=== PATIENT | female | born 1985 | race Caucasian/White ===

== ENCOUNTER → 2017-04-11 | Outpatient (CLI) | payer OTHER ==
[~2017-04-11] MED LIST: FLUO20CA19 PO; HYDR-3240 PO; PRED20TA PO
[2017-04-11 12:11] LABS: HEMATOCRIT 39.9 % (34.6-47.8); HEMOGLOBIN 13.1 g/dL (11.7-16.4); WHITE BLOOD COUNT 5.5 x10^3/uL (3.4-10)
[2017-04-11 12:26] LABS: BLOOD UREA NITROGEN 15 mg/dL (7-18)
[2017-04-11 12:30] LABS: ASPARTATE AMINO TRANSFERASE 14 U/L (15-37)
== END | disposition home or self-care (01) ==
LOC: LAB 11:56
PROVIDERS: ATTEND Specialist
DX: M35.9 Systemic involvement of connective tissue, unspecified (principal); R76.0 Raised antibody titer
CPT/HCPCS: 36415; 80053; 82570; 84156; 85025

== ENCOUNTER 2017-05-15 11:13 | Emergency (ER) | payer OTHER ==
[~2017-05-15] VITALS: Ht 157.5 cm; Wt 77.3 kg
[2017-05-15] MEDS ORDERED: CYCL1DRO OP (11:46)
[2017-05-15] MEDS ORDERED: AMLO5TAB2 PO (11:46)
[2017-05-15] MEDS ORDERED: HYDR200T PO (11:46)
[2017-05-15] MEDS ORDERED: GABA300C PO (11:46)
[2017-05-15 12:59] VITALS: BP 114/77
[2017-05-15 12:59] LABS: PATH.CAST-FLAG NOT PRESENT; SPERM-FLAG NOT PRESENT; SRC-FLAG NOT PRESENT; XTAL-FLAG NOT PRESENT; YLC-FLAG NOT PRESENT
[2017-05-15 13:04] LABS: HEMOGLOBIN 12.1 g/dL (11.7-16.4); WHITE BLOOD COUNT 5.6 x10^3/uL (3.4-10)
[2017-05-15 13:15] LABS: ASPARTATE AMINO TRANSFERASE 16 U/L (15-37); BLOOD UREA NITROGEN 10 mg/dL (7-18)
== END 2017-05-15 15:55 | disposition home or self-care (01) ==
LOC: ED 14:47
DX: N39.0 Urinary tract infection, site not specified (principal); R42 Dizziness and giddiness; M32.9 Systemic lupus erythematosus, unspecified
CPT/HCPCS: 36415; 70450; 70551; 80053; 81001; 84703; 85025; 85610; 85730; 87086; 93005; 99285

== ENCOUNTER 2017-05-18 13:32 | Emergency (ER) | payer OTHER ==
[~2017-05-18] VITALS: Ht 157.5 cm; Wt 76.8 kg
[~2017-05-18 13:32] MED LIST changes: +AMLO5TAB2 PO; +CYCL1DRO OP; +GABA300C PO; +HYDR200T PO
[2017-05-18] MEDS ORDERED: MORPHINE SULFATE 4 MG/ML, 1ML ONE (14:22)
[2017-05-18] MEDS ORDERED: SODIUM CHLORIDE 0.9% 1,000ML IVBOLUS ONE (14:30)
[2017-05-18] MEDS ORDERED: SODIUM CHLORIDE FLUSH 10ML SYR IVF ONE (14:30)
[2017-05-18] MEDS ORDERED: MORPHINE SULFATE 4 MG/ML, 1ML IVPush PRN (14:30)
[2017-05-18] MEDS ORDERED: ONDANSETRON 2MG/ML, 2ML ONE (14:48)
[2017-05-18 14:53] LABS: HEMATOCRIT 35.9 % (34.6-47.8); HEMOGLOBIN 11.9 g/dL (11.7-16.4); WHITE BLOOD COUNT 6.2 x10^3/uL (3.4-10)
[2017-05-18] MEDS ORDERED: ONDANSETRON 2MG/ML, 2ML IVPush ONE (15:00)
[2017-05-18 15:04] LABS: ASPARTATE AMINO TRANSFERASE 13 U/L (15-37); BLOOD UREA NITROGEN 18 mg/dL (7-18)
[2017-05-18 15:15] LABS: IS PT STATUS REG ER OR PRE ER? YES
[2017-05-18 16:18] VITALS: BP 115/80
== END 2017-05-18 16:20 | disposition home or self-care (01) ==
LOC: ED 16:10
DX: R07.89 Other chest pain (principal); G43.909 Migraine, unspecified, not intractable, without status migrainosus
CPT/HCPCS: 36415; 71010; 80053; 83880; 84484; 85025; 85379; 85610; 85730; 93005; 96361; 96374; 96375; 99285; J2405; J7030

== ENCOUNTER 2017-05-29 15:23 | Emergency (ER) | payer OTHER ==
[~2017-05-29] VITALS: Ht 157.5 cm; Wt 78.1 kg
[2017-05-29] MEDS ORDERED: ONDANSETRON 2MG/ML, 2ML ONE (16:49)
[2017-05-29 16:59] VITALS: BP 130/86
[2017-05-29] MEDS ORDERED: SODIUM CHLORIDE FLUSH 10ML SYR IVF ONE (17:00)
[2017-05-29] MEDS ORDERED: ONDANSETRON 2MG/ML, 2ML IVPush ONE (17:00)
[2017-05-29] MEDS ORDERED: SODIUM CHLORIDE 0.9% 1,000ML IVBOLUS ONE (17:00)
[2017-05-29] MEDS ORDERED: GABA300C10 PO (17:07)
[2017-05-29] MEDS ORDERED: METH500T7 PO (17:07)
[2017-05-29] MEDS ORDERED: MELO7.5T31 PO (17:07)
[2017-05-29 17:08] LABS: HEMATOCRIT 36.7 % (34.6-47.8); HEMOGLOBIN 12.1 g/dL (11.7-16.4); WHITE BLOOD COUNT 5.9 x10^3/uL (3.4-10)
[2017-05-29 17:16] LABS: PATH.CAST-FLAG NOT PRESENT; SPERM-FLAG NOT PRESENT; SRC-FLAG NOT PRESENT; XTAL-FLAG NOT PRESENT; YLC-FLAG NOT PRESENT
[2017-05-29 17:19] LABS: ASPARTATE AMINO TRANSFERASE 13 U/L (15-37); BLOOD UREA NITROGEN 14 mg/dL (7-18)
[2017-05-29] MEDS ORDERED: HYDROcodone/APAP 5/325 TABLET ONE (17:44)
[2017-05-29] MEDS ORDERED: HYDROcodone/APAP 5/325 TABLET PO ONE (18:00)
[2017-05-29] MEDS ORDERED: OMNIPAQUE 350 MG/ML, 100ML BOTTLE ONE (18:08)
== END 2017-05-29 19:09 | disposition home or self-care (01) ==
LOC: ED 16:26
DX: K85.90 Acute pancreatitis without necrosis or infection, unspecified (principal); G43.909 Migraine, unspecified, not intractable, without status migrainosus
CPT/HCPCS: 36415; 74177; 80053; 81001; 83690; 85025; 96361; 96374; 99285; J2405; J7030; Q9967

== ENCOUNTER → 2017-08-02 | Outpatient (CLI) | payer OTHER ==
[~2017-08-02] MED LIST changes: +GABA300C10 PO; +MELO7.5T31 PO; +METH500T7 PO
== END | disposition home or self-care (01) ==
LOC: LAB 10:19
PROVIDERS: ATTEND Internal Medicine Cardiovascular Disease
DX: R00.0 Tachycardia, unspecified (principal)
CPT/HCPCS: 36415; 84436; 84443; 84481

== ENCOUNTER → 2017-08-02 | Outpatient (CLI) | payer OTHER | END | disposition home or self-care (01) | LOC: CFH 08:39 | PROVIDERS: ATTEND Internal Medicine Cardiovascular Disease | DX: I07.1 Rheumatic tricuspid insufficiency (principal) | CPT/HCPCS: 93306 ==

== ENCOUNTER → 2018-02-05 | Outpatient (CLI) | payer OTHER ==
[~2018-02-05] MED LIST changes: -HYDR200T PO; +HYDR200T72 PO
== END | disposition home or self-care (01) ==
LOC: CFH 15:01
PROVIDERS: ATTEND Nurse Practitioner Family
DX: N13.30 Unspecified hydronephrosis (principal)
CPT/HCPCS: 76770

== ENCOUNTER 2018-02-06 18:15 | Emergency (ER) | payer OTHER ==
[~2018-02-06] VITALS: Ht 160 cm; Wt 70.8 kg
[2018-02-06 18:44] LABS: BASOPHILS # (AUTO) 0.03 x10^3/uL (0-0.1); BASOPHILS % (AUTO) 1 % (0-1); EOSINOPHILS # (AUTO) 0.11 x10^3/uL (0-0.4); EOSINOPHILS % (AUTO) 2 % (1-7); LYMPHOCYTES # (AUTO) 1.87 x10^3/uL (1-3.4); LYMPHOCYTES % (AUTO) 37 % (22-44); MD NO; MEAN CORPUSCULAR HEMOGLOBIN 25.8 pg (27.0-34.8); MEAN CORPUSCULAR HGB CONC 32.7 g/dL (32.4-35.8); MEAN CORPUSCULAR VOLUME 78.7 fL (80-100); MEAN PLATELET VOLUME 9.3 fL (7.4-10.4); MONOCYTES # (AUTO) 0.51 x10^3/uL (0.2-0.8); MONOCYTES % (AUTO) 10 % (2-9); NEUTROPHILS # (AUTO) 2.59 x10^3/uL (1.8-6.8); NEUTROPHILS % (AUTO) 51 % (42-75); PLATELET COUNT 221 x10^3/uL (130-400); RED BLOOD COUNT 4.64 x10^6/uL (3.82-5.3)
[2018-02-06 18:52] LABS: ALANINE AMINOTRANSFERASE 18 U/L (12-78); ALBUMIN 3.8 g/dL (3.4-5.0); ANION GAP 7 mmol/L (5-15); CALCIUM 9.4 mg/dL (8.5-10.1); CHLORIDE 111 mmol/L (98-107); CREATININE 0.83 mg/dL (0.55-1.02)
[2018-02-06 18:54] LABS: ALKALINE PHOSPHATASE 72 U/L (45-117); BILIRUBIN,TOTAL 0.4 mg/dL (0.2-1.0); TOTAL PROTEIN 7.1 g/dL (6.4-8.2)
[2018-02-06 19:27] LABS: CULTURE INDICATED? YES; MICROSCOPIC INDICATED
[2018-02-06 19:36] VITALS: BP 123/84
[2018-02-06 19:48] LABS: HCT (SEDRATE) 36.6 % (34.6-47.8)
== END 2018-02-06 20:27 | disposition home or self-care (01) ==
LOC: ED 19:34
DX: N30.90 Cystitis, unspecified without hematuria (principal); N13.30 Unspecified hydronephrosis; G43.909 Migraine, unspecified, not intractable, without status migrainosus; M32.9 Systemic lupus erythematosus, unspecified
CPT/HCPCS: 36415; 74176; 80053; 81001; 85025; 85651; 87086; 99285

== ENCOUNTER → 2019-09-02 | Outpatient (CLI) | payer OTHER ==
[~2019-09-02] MED LIST changes: +AMLO-150 PO; -AMLO5TAB2 PO
[2019-09-02 13:53] LABS: BASOPHILS # (AUTO) 0.02 x10^3/uL (0-0.1); BASOPHILS % (AUTO) 0 % (0-1); EOSINOPHILS # (AUTO) 0.11 x10^3/uL (0-0.4); EOSINOPHILS % (AUTO) 2 % (1-7); LYMPHOCYTES # (AUTO) 2.26 x10^3/uL (1-3.4); LYMPHOCYTES % (AUTO) 35 % (22-44); MD NO; MEAN CORPUSCULAR HEMOGLOBIN 29.9 pg (27.0-34.8); MEAN CORPUSCULAR HGB CONC 33.4 g/dL (32.4-35.8); MEAN CORPUSCULAR VOLUME 89.4 fL (80-100); MEAN PLATELET VOLUME 9.2 fL (7.4-10.4); MONOCYTES # (AUTO) 0.35 x10^3/uL (0.2-0.8); MONOCYTES % (AUTO) 5 % (2-9); NEUTROPHILS # (AUTO) 3.79 x10^3/uL (1.8-6.8); NEUTROPHILS % (AUTO) 58 % (42-75); PLATELET COUNT 205 x10^3/uL (130-400); RED BLOOD COUNT 4.75 x10^6/uL (3.82-5.3)
[2019-09-02 13:54] LABS: HCT (SEDRATE) 42.5 % (34.6-47.8)
[2019-09-02 14:07] LABS: MICROSCOPIC AUTO
[2019-09-02 14:08] LABS: ALANINE AMINOTRANSFERASE 18 U/L (12-78); ALKALINE PHOSPHATASE 72 U/L (45-117); BILIRUBIN,TOTAL 0.6 mg/dL (0.2-1.0); C-REACTIVE PROTEIN, QUANT 0.03 mg/dL (0.02-0.49); CREATININE 0.86 mg/dL (0.55-1.02); TOTAL PROTEIN 7.3 g/dL (6.4-8.2)
[2019-09-02 14:11] LABS: CULTURE INDICATED? YES
[2019-09-02 14:21] LABS: CREATININE,URINE RANDOM 79.6 mg/dL
[2019-09-02 14:30] LABS: BILIRUBIN, DIRECT < 0.1 mg/dL (0.1-0.2); BILIRUBIN,INDIRECT 0.5 mg/dL (0.0-2.0)
== END | disposition home or self-care (01) ==
LOC: LAB 13:26
PROVIDERS: ATTEND Internal Medicine
DX: M32.10 Systemic lupus erythematosus, organ or system involvement unspecified (principal); Z79.899 Other long term (current) drug therapy
CPT/HCPCS: 36415; 80076; 81001; 82565; 82570; 84156; 85025; 85651; 86140; 86160; 87086

== ENCOUNTER → 2020-10-30 | Outpatient (CLI) | payer OTHER ==
[~2020-10-30] MED LIST changes: +HYDR-1067 PO; -HYDR-3240 PO; +METH-639 PO; -METH500T7 PO
[2020-10-30 12:42] LABS: CHOL/HDL RATIO 1.9; LDL/HDL RATIO 0.8 (0.5-3.0)
== END | disposition home or self-care (01) ==
LOC: LAB 12:07
PROVIDERS: ATTEND Internal Medicine
DX: Z00.8 Encounter for other general examination (principal); E55.9 Vitamin D deficiency, unspecified
CPT/HCPCS: 36415; 80061; 82306

== ENCOUNTER → 2020-11-06 | Outpatient (CLI) | payer OTHER ==
[2020-11-06 09:33] LABS: MICROSCOPIC AUTO
[2020-11-06 09:34] LABS: BASOPHILS % (AUTO) 1 % (0-1); EOSINOPHILS % (AUTO) 1 % (1-7); LYMPHOCYTES % (AUTO) 33 % (22-44); MEAN CORPUSCULAR HEMOGLOBIN 30.1 pg (27.0-34.8); MEAN CORPUSCULAR HGB CONC 33.9 g/dL (32.4-35.8); MEAN PLATELET VOLUME 8.7 fL (7.4-10.4); MONOCYTES % (AUTO) 8 % (2-9); NEUTROPHILS % (AUTO) 57 % (42-75); PLATELET COUNT 219 x10^3/uL (130-400); RED BLOOD COUNT 4.66 x10^6/uL (3.82-5.3)
[2020-11-06 09:36] LABS: ALANINE AMINOTRANSFERASE 24 U/L (12-78); ALBUMIN 3.9 g/dL (3.4-5.0); ANION GAP 5 mmol/L (5-15); CALCIUM 9.2 mg/dL (8.5-10.1); CHLORIDE 109 mmol/L (98-107); CREATININE 0.83 mg/dL (0.55-1.02); MD NO
[2020-11-06 09:38] LABS: ALKALINE PHOSPHATASE 75 U/L (45-117); BILIRUBIN,TOTAL 0.5 mg/dL (0.2-1.0); TOTAL PROTEIN 6.9 g/dL (6.4-8.2)
[2020-11-06 09:44] LABS: TOTAL PROTEIN,URINE RANDOM < 5 mg/dL (0-12)
[2020-11-06 10:55] LABS: HCT (SEDRATE) 41.4 % (34.6-47.8)
== END | disposition home or self-care (01) ==
LOC: LAB 08:58
PROVIDERS: ATTEND Internal Medicine
DX: M32.10 Systemic lupus erythematosus, organ or system involvement unspecified (principal); R76.0 Raised antibody titer; Z79.899 Other long term (current) drug therapy
CPT/HCPCS: 36415; 80053; 81001; 82570; 84156; 85025; 85651; 86140; 86160; 87086

== ENCOUNTER 2021-03-20 18:20 | Inpatient (IN) | payer OTHER ==
[~2021-03-20] VITALS: Ht 157.5 cm; Wt 72.2 kg
[~2021-03-20 18:20] MED LIST changes: -HYDR-1067 PO; +HYDR-2214 PO
--- NOTE | 2021-03-20 18:50 | NUR ---
INITIAL PT CONTACT. PT PRESENTS TO ED C/O GENERALIZED LOWER ABDOMINAL PAIN. "I HAVE REALLY BAD ABD PAIN. BEGAN ABOUT 1 HOUR AGO. SOME DRY HEAVING EARLIER." PT DENIES NAUSEA OR VOMITING CURRENTLY. NO URINARY SYMPTOMS. PT ALSO REPORTS "SOME SPOTTING VAGINALLY BUT I THOUGHT IT COULD JUST BE MY PERIOD." PT SITTING UPRIGHT ON GUSTEPHANIE, VSTejinder. PT REPORTS SIGNIFICANT PAIN, UNCOMFORTABLE ON BED. CONTINUOUS MONITORING IN PLACE AND SPOUSE AT BEDSIDE. AWAITING ERP.
[2021-03-20] MEDS ORDERED: ONDANSETRON 2MG/ML, 2ML ONE ×2 (18:55→23:58)
[2021-03-20] MEDS ORDERED: MORPHINE SULFATE 4 MG/ML, 1ML ONE ×2 (18:55→22:10)
[2021-03-20] MEDS: MORPHINE SULFATE 4 MG/ML, 1ML IVPush PRN ×2 (18:59→22:12)
[2021-03-20] MEDS ORDERED: SODIUM CHLORIDE FLUSH 10ML SYR IVF ONE (19:00)
[2021-03-20] MEDS ORDERED: SODIUM CHLORIDE 0.9% 1,000ML IVBOLUS ONE (19:00)
[2021-03-20] MEDS ORDERED: ONDANSETRON 2MG/ML, 2ML IVPush ONE (19:00)
[2021-03-20 19:03] LABS: BASOPHILS % (AUTO) 1 % (0-1); EOSINOPHILS % (AUTO) 1 % (1-7); LYMPHOCYTES % (AUTO) 23 % (22-44); MEAN CORPUSCULAR HEMOGLOBIN 30.1 pg (27.0-34.8); MEAN CORPUSCULAR HGB CONC 33.1 g/dL (32.4-35.8); MONOCYTES % (AUTO) 5 % (2-9); NEUTROPHILS % (AUTO) 70 % (42-75); PLATELET COUNT 205 x10^3/uL (130-400); RED BLOOD COUNT 4.68 x10^6/uL (3.82-5.3); RED CELL DISTRIBUTION WIDTH 13.8 % (9.6-15.2)
[2021-03-20 19:13] LABS: ALANINE AMINOTRANSFERASE 22 U/L (12-78); ALBUMIN 3.7 g/dL (3.4-5.0); ANION GAP 7 mmol/L (5-15); CHLORIDE 111 mmol/L (98-107); CREATININE 0.77 mg/dL (0.55-1.02)
[2021-03-20 19:18] LABS: ALKALINE PHOSPHATASE 72 U/L (45-117); BILIRUBIN,TOTAL 0.5 mg/dL (0.2-1.0); TOTAL PROTEIN 7.5 g/dL (6.4-8.2)
[2021-03-20] MEDS ORDERED: HYDROmorphone 1 MG/ML, 1ML INJ IV ONE (19:30)
[2021-03-20] MEDS ORDERED: HYDROmorphone 2 MG/ML, 1ML ONE ×2 (19:44→23:49)
--- NOTE | 2021-03-20 20:00 | NUR ---
PT UPRIGHT ON KAHLIL BARNETT, VSS. PT REPORTS INVCREASED PAIN, REQUESTING ADDITIONAL PAINMEDICATION, PT MEDICATED PER EMAR. PT DENIES ANY ADDITIONAL NEEDS AT THIS TIME. FAMILY REMAINS AT BEDSIDE. CALL LIGHT AND BELONGINGS WITHIN REACH.
[2021-03-20] MEDS ORDERED: OMNIPAQUE 350 MG/ML, 100ML BOTTLE ONE (20:36)
[2021-03-20 21:22] LABS: MICROSCOPIC AUTO
--- NOTE | 2021-03-20 22:32 | NUR ---
PT REQUESTING ADDITIONAL PAIN MEDICATION. MEDICATED PER EMAR. NO ADDITIONAL NEEDS AT THIS TIME. CALL LIGHT AND PERSONAL BELONGINGS WITHIN REACH. SPOUSE AT BEDSIDE
[2021-03-20] MEDS ORDERED: CEFTRIAXONE 1,000 MG in DEXTROSE 5% 50 ML IVPB ONE (23:30)
[2021-03-21] MEDS ORDERED: MELATONIN 5 MG TABLET PO PRN
[2021-03-21] MEDS ORDERED: POLYETHYLENE GLYCOL 17 GM PACKET PO PRN
[2021-03-21] MEDS ORDERED: HYDROmorphone 1 MG/ML, 1ML INJ IV ONE
[2021-03-21] MEDS ORDERED: LABETALOL 5MG/ML, 20ML IVPush PRN
[2021-03-21] MEDS ORDERED: FAMOTIDINE 20 MG/2 ML IVPush SCH
[2021-03-21] MEDS: ONDANSETRON 2MG/ML, 2ML IVPush PRN ×2 (00:02→08:04)
--- NOTE | 2021-03-21 00:28 | NUR ---
Pt to be admitted to MEDICAL, room 364. Report called to RADHA.
[2021-03-21 02:10] VITALS: BP 110/77
[2021-03-21] MEDS: ACETAMINOPHEN 500 MG TABLET PO SCH ×6 (02:15→22:16)
[2021-03-21] MEDS: HYDROXYCHLOROQUINE 200 MG TABLET PO SCH ×2 (02:15→20:23)
[2021-03-21] MEDS: GABAPENTIN 300 MG CAPSULE PO SCH ×5 (02:15→20:59)
[2021-03-21] MEDS: LACTATED RINGERS 1,000 ML IV SCH ×3 (02:15→22:16)
[2021-03-21] MEDS: KETOROLAC 30 MG/1 ML IVPush PRN ×2 (02:34→08:04)
[2021-03-21 07:42] VITALS: BP 112/77
[2021-03-21 08:21] LABS: BASOPHILS % (AUTO) 0 % (0-1); EOSINOPHILS % (AUTO) 0 % (1-7); LYMPHOCYTES % (AUTO) 15 % (22-44); MEAN CORPUSCULAR HEMOGLOBIN 30.3 pg (27.0-34.8); MEAN CORPUSCULAR HGB CONC 33.1 g/dL (32.4-35.8); MEAN PLATELET VOLUME 8.9 fL (7.4-10.4); MONOCYTES % (AUTO) 8 % (2-9); NEUTROPHILS % (AUTO) 77 % (42-75); PLATELET COUNT 181 x10^3/uL (130-400); RED BLOOD COUNT 4.07 x10^6/uL (3.82-5.3); RED CELL DISTRIBUTION WIDTH 13.9 % (9.6-15.2)
[2021-03-21 08:27] LABS: ANION GAP 4 mmol/L (5-15); CALCIUM 8.8 mg/dL (8.5-10.1); CHLORIDE 111 mmol/L (98-107); CREATININE 0.59 mg/dL (0.55-1.02)
[2021-03-21] MEDS: TEMPLATE NON-FORMULARY MED. (Cyclosporine (Restasis) 1 DROP) OP SCH (08:59)
[2021-03-21] MEDS: FLUOXETINE HCL 20 MG CAPSULE PO SCH (09:06)
[2021-03-21] MEDS: HYDROmorphone 2 MG/ML, 1ML IVPush PRN ×2 (10:12→23:39)
[2021-03-21] MEDS: IBUPROFEN 600 MG TABLET PO PRN (12:59)
[2021-03-21] MEDS ORDERED: OXYcodone IR 5MG TABLET PO PRN (13:00)
[2021-03-21] MEDS: OXYcodone IR 5MG TABLET PO PRN ×3 (13:00→22:16)
[2021-03-21 15:00] VITALS: BP 114/77
[2021-03-21 18:48] VITALS: BP 100/68
[2021-03-21] MEDS ORDERED: AMLODIPINE 5 MG TABLET PO SCH (21:00)
[2021-03-22 00:15] VITALS: BP 99/67
[2021-03-22] MEDS: ACETAMINOPHEN 500 MG TABLET PO SCH ×5 (02:08→18:00)
[2021-03-22] MEDS: OXYcodone IR 5MG TABLET PO PRN ×3 (04:55→13:16)
[2021-03-22 05:31] LABS: BASOPHILS % (AUTO) 1 % (0-1); EOSINOPHILS % (AUTO) 2 % (1-7); LYMPHOCYTES % (AUTO) 39 % (22-44); MEAN CORPUSCULAR HEMOGLOBIN 30.7 pg (27.0-34.8); MEAN CORPUSCULAR HGB CONC 33.6 g/dL (32.4-35.8); MEAN PLATELET VOLUME 9.3 fL (7.4-10.4); MONOCYTES % (AUTO) 10 % (2-9); NEUTROPHILS % (AUTO) 48 % (42-75); PLATELET COUNT 162 x10^3/uL (130-400); RED BLOOD COUNT 3.75 x10^6/uL (3.82-5.3); RED CELL DISTRIBUTION WIDTH 13.6 % (9.6-15.2)
[2021-03-22 05:38] LABS: ANION GAP 3 mmol/L (5-15); CALCIUM 8.5 mg/dL (8.5-10.1); CHLORIDE 111 mmol/L (98-107); CREATININE 0.55 mg/dL (0.55-1.02)
[2021-03-22 06:35] VITALS: BP 105/73
[2021-03-22] MEDS: TEMPLATE NON-FORMULARY MED. (Cyclosporine (Restasis) 1 DROP) OP SCH (09:00)
[2021-03-22] MEDS: GABAPENTIN 300 MG CAPSULE PO SCH ×3 (09:04→23:32)
[2021-03-22] MEDS: IBUPROFEN 600 MG TABLET PO PRN (09:04)
[2021-03-22] MEDS: FLUOXETINE HCL 20 MG CAPSULE PO SCH (09:05)
[2021-03-22] MEDS: LACTATED RINGERS 1,000 ML IV SCH ×2 (09:51→23:34)
[2021-03-22] MEDS: HYDROmorphone 2 MG/ML, 1ML IVPush PRN (11:16)
[2021-03-22] MEDS: KETOROLAC 30 MG/1 ML IVPush PRN ×2 (13:15→19:31)
[2021-03-22 13:56] VITALS: BP 121/85
[2021-03-22] MEDS ORDERED: MIDAZOLAM 1 MG/ML, 2ML ONE (15:53)
[2021-03-22] MEDS ORDERED: FENTANYL PF 100 MCG/2ML ONE ×2 (15:53→18:54)
[2021-03-22] MEDS ORDERED: LIDOCAINE-MPF 2% ,5ML ONE (15:53)
[2021-03-22] MEDS ORDERED: ONDANSETRON 2MG/ML, 2ML ONE ×2 (15:56→19:02)
[2021-03-22] MEDS ORDERED: SUCCINYLCHOLINE 20 MG/ML, 10ML ONE (15:56)
[2021-03-22] MEDS ORDERED: DEXAMETHASONE 4 MG/ML, 1ML ONE (15:56)
[2021-03-22] MEDS ORDERED: ROCURONIUM 10MG/ML,5ML ONE (15:56)
[2021-03-22] MEDS ORDERED: CEFAZOLIN 1,000 MG ONE (15:56)
[2021-03-22] MEDS ORDERED: PROPOFOL 10 MG/ML, 20ML ONE (15:56)
[2021-03-22] MEDS ORDERED: CHLORHEXIDINE 15 ML UDC ONE (15:57)
[2021-03-22] MEDS ORDERED: HYDROmorphone 1 MG/ML, 1ML INJ IVPush PRN (16:00)
[2021-03-22] MEDS ORDERED: OXYcodone 5 MG/5 ML ORAL.SOL UDC PO PRN ×2 (16:00→21:30)
[2021-03-22] MEDS ORDERED: ONDANSETRON 2MG/ML, 2ML IVPush PRN (16:00)
[2021-03-22] MEDS ORDERED: PROMETHAZINE 25 MG/ML, 1ML IVPush PRN (16:00)
[2021-03-22] MEDS ORDERED: CHLORHEXIDINE 15 ML UDC PO ONE (16:00)
[2021-03-22] MEDS ORDERED: METHOCARBAMOL 1,000 MG in DEXTROSE 5% 100 ML IV PRN (16:00)
[2021-03-22] MEDS ORDERED: ACETAMINOPHEN 325 MG TABLET PO PRN (16:00)
[2021-03-22] MEDS ORDERED: hydrALAzine 20 MG/ML, 1ML IV PRN (16:00)
[2021-03-22] MEDS ORDERED: EPHEDRINE 50 MG/ML, 1ML IVPush PRN (16:00)
[2021-03-22] MEDS ORDERED: LABETALOL 5MG/ML, 20ML IV PRN (16:00)
[2021-03-22] MEDS ORDERED: BUPIVACAINE/PF 0.25% ONE (16:04)
[2021-03-22] MEDS ORDERED: KETOROLAC 30 MG/1 ML ONE ×2 (16:31→19:14)
[2021-03-22] MEDS ORDERED: SUGAMMADEX 200 MG/2 ML IVPush ONE (16:31)
[2021-03-22] MEDS ORDERED: MANNITOL PMX 20% 500 ML ONE (18:25)
[2021-03-22] MEDS: FENTANYL PF 100 MCG/2ML IV PRN ×2 (18:56→19:05)
[2021-03-22] MEDS ORDERED: ACETAMINOPHEN 650 MG/20.3 ML UDC ONE (19:39)
[2021-03-22] MEDS ORDERED: OXYcodone 5 MG/5 ML ORAL.SOL UDC ONE (19:39)
[2021-03-22 20:18] VITALS: BP 109/76
[2021-03-22] MEDS ORDERED: PROMETHAZINE 25 MG/ML, 1ML ONE (20:38)
[2021-03-22] MEDS ORDERED: PROMETHAZINE 25 MG/ML, 1ML IM PRN (21:00)
[2021-03-22] MEDS ORDERED: KETOROLAC 30 MG/1 ML IV PRN (21:30)
[2021-03-22] MEDS ORDERED: HYDROmorphone 1 MG/ML, 1ML INJ IV PRN (21:30)
[2021-03-22] MEDS: HYDROXYCHLOROQUINE 200 MG TABLET PO SCH (23:32)
[2021-03-23 00:49] VITALS: BP 108/74
[2021-03-23] MEDS: LACTATED RINGERS 1,000 ML IV SCH (05:30)
[2021-03-23 06:30] LABS: BASOPHILS % (AUTO) 0 % (0-1); EOSINOPHILS % (AUTO) 0 % (1-7); LYMPHOCYTES % (AUTO) 8 % (22-44); MEAN CORPUSCULAR HEMOGLOBIN 30.5 pg (27.0-34.8); MEAN CORPUSCULAR HGB CONC 33.5 g/dL (32.4-35.8); MEAN PLATELET VOLUME 9.1 fL (7.4-10.4); MONOCYTES % (AUTO) 4 % (2-9); NEUTROPHILS % (AUTO) 88 % (42-75); PLATELET COUNT 184 x10^3/uL (130-400); RED CELL DISTRIBUTION WIDTH 13.7 % (9.6-15.2)
[2021-03-23 06:40] VITALS: BP 100/68
[2021-03-23 06:46] LABS: ANION GAP 3 mmol/L (5-15); CALCIUM 8.9 mg/dL (8.5-10.1); CHLORIDE 110 mmol/L (98-107); CREATININE 0.68 mg/dL (0.55-1.02)
== END 2021-03-23 12:59 | disposition home or self-care (01) | DRG 742 ==
LOC: ED 20:13 → EDIP 23:18 → 3N 03-21 00:48
PROVIDERS: ADMIT Internal Medicine; ATTEND Internal Medicine
PROC: 0UB74ZZ Excision of Bilateral Fallopian Tubes, Percutaneous Endoscopic Approach (ICD-10-PCS; 2021-03-22)
PROC: 0UN04ZZ Release Right Ovary, Percutaneous Endoscopic Approach (ICD-10-PCS; 2021-03-22)
PROC: 0TJB8ZZ Inspection of Bladder, Via Natural or Artificial Opening Endoscopic (ICD-10-PCS; 2021-03-22)
PROC: 0UB04ZZ Excision of Right Ovary, Percutaneous Endoscopic Approach (ICD-10-PCS; principal; 2021-03-22 17:00)
DX: D25.9 Leiomyoma of uterus, unspecified (principal); K65.9 Peritonitis, unspecified; G43.909 Migraine, unspecified, not intractable, without status migrainosus; M32.9 Systemic lupus erythematosus, unspecified; N30.90 Cystitis, unspecified without hematuria; N73.6 Female pelvic peritoneal adhesions (postinfective); N83.201 Unspecified ovarian cyst, right side; Z80.3 Family history of malignant neoplasm of breast; Z82.49 Family history of ischemic heart disease and other diseases of the circulatory system; Z20.822 Contact with and (suspected) exposure to COVID-19; Z87.442 Personal history of urinary calculi
CPT/HCPCS: 36415; 74018; 96361; 96374; 96375; 99285; J3490; 74177; 76830; 80048; 80053; 81001; 83690; 83735; 84100; 84703; 85025; 87086; 87635; 88305; G0378; J0690; J0696; J1100; J1170; J1885; J2250; J2405; J2550; J2704; J3010; Q9967; J0330; J2270; J2800; J7030; J7120